=== PATIENT | female | born 1995 | race African-American/Black ===

== ENCOUNTER 2023-07-24 08:56 | Emergency (ER) | payer SELFPAY ==
[2023-07-24 09:58] LABS: #Basophils 0.1 thou/uL (0.0-0.2); #Eosinphils 0.1 thou/uL (0.0-0.7); #Monocytes 0.7 thou/uL (0.11-0.59); #Neutrophils 9.3 thou/uL (1.40-6.50); %Basophils 0.4 % (0.0-1.0); %Eosinophils 1.1 % (0.0-10.0); %Lymphocytes 17.8 % (21.0-51.0); %Monocytes 5.5 % (0.0-10.0); %Neutrophils 74.5 % (42.0-75.0); Hematocrit 36.5 % (36.0-47.0); Hemoglobin 12.5 g/dL (12.0-16.0); Mean Corpuscular HGB CONC 34.2 g/dL (32.0-36.0); Mean Corpuscular Hemoglobin 30.8 pg (27.0-31.0); Mean Corpuscular Volume 89.9 fl (78.0-98.0); Mean Platelet Volume 9.8 fL (7.4-10.4); Platelet Count 247 10x3/uL (130-400); RBC Distribution Width 14.6 % (11.5-14.5); Red Blood Cell (RBC) Count 4.06 mill/uL (4.20-5.40); White Blood Cell (WBC) Count 12.5 10x3/uL (4.8-10.8)
[2023-07-24 10:09] LABS: Pregnancy Test - Urine (BHCG) POSITIVE (Negative); Pregu Control Background? CLEAR/WHITE (CLR/WHITE); Pregu Control Bar Appear? YES (CONTROL BAR); Specific Gravity 1.025 (1.002-1.036)
[2023-07-24 10:10] LABS: Bacteria/HPF 1+ HPF (None Seen); Bilirubin Negative (Negative); Blood, Urine Negative (Negative); CAUTI Indications for Culture Dysuria,urgency,freq; Clarity Turbid (Clear); Glucose, Urine (Dipstick) Normal (Negative); Ketone, Urine Negative (Negative); Leukocyte 250 Leu/uL (Negative); Nitrite Negative (Negative); Protein, Urine (Dipstick) 20 mg/dL (Neg-Trace); RBC/HPF 0-3 HPF (0-3); Specific Gravity, Urine 1.025 (1.002-1.036); Squamous Epithelial Greater than 50 HPF (0-3); Urobilinogen Normal mg/dL (Less than 2); pH, Urine 7.5 (5.0-9.0)
[2023-07-24 10:11] LABS: Urine Culture Reflex No No
[2023-07-24 10:21] LABS: ALT (SGPT) 11 U/L (8-55); AST (SGOT) 18 U/L (5-34); Albumin 3.8 g/dL (3.5-5.0); Alkaline Phosphatase 62 U/L (40-110); Anion Gap 12 mmol/L (10-20); BUN (Urea Nitrogen) 8 mg/dL (7.0-18.7); Bilirubin, Total 0.6 mg/dL (0.2-1.2); Calc. Creatinine Clearance 0 mL/min (70-130); Calcium 8.9 mg/dL (7.8-10.44); Carbon Dioxide 22 mmol/L (22-29); Chloride 106 mmol/L (98-107); Estimated GFR 121; Globulin 3.3 g/dL (2.4-3.5); Glucose 79 mg/dL (70-105); Potassium 3.9 mmol/L (3.5-5.1); Protein, Total 7.1 g/dL (6.0-8.3); Sodium 136 mmol/L (136-145)
[2023-07-24] MEDS ORDERED: Lidocaine 1% MPF 2 ML VIAL ONE (11:35)
[2023-07-24] MEDS ORDERED: Azithromycin 250 MG TAB ONE (11:35)
[2023-07-24] MEDS ORDERED: cefTRIAXone (ROCEPHIN) 500 MG VIAL ONE (11:36)
[2023-07-24] MEDS ORDERED: Fluconazole 100 MG TAB ONE (11:36)
[2023-07-24 22:34] LABS: Chlamydia by PCR, Vaginal Swab Not Detected (NotDetected); GC by PCR, Vaginal Swab Not Detected (NotDetected); Tric.vaginalis PCR,Vaginal Sw Not Detected (NotDetected)
== END 2023-07-24 12:03 | disposition home or self-care (01) ==
LOC: ERS 08:56
DX: O23.41 Unspecified infection of urinary tract in pregnancy, first trimester (principal); N39.0 Urinary tract infection, site not specified; O98.811 Other maternal infectious and parasitic diseases complicating pregnancy, first trimester; B37.31 Acute candidiasis of vulva and vagina; O13.9 Gestational [pregnancy-induced] hypertension without significant proteinuria, unspecified trimester; Z3A.13 13 weeks gestation of pregnancy
CPT/HCPCS: 36415; 76815; 80053; 81001; 81025; 84702; 85025; 86900; 86901; 87480; 87491; 87510; 87591; 87660; 87661; 96372; J0696